=== PATIENT | female | born 1935 | race Caucasian/White ===

== ENCOUNTER 2022-02-04 15:53 | Inpatient (IN) | payer MEDICARE, OTHER ==
[~2022-02-04] VITALS: Ht 157.5 cm; Wt 62.5 kg
[~2022-02-04 15:53] MED LIST: BROMFENAC SODIUM; GABA300 PO; HYDRA25 PO; HYDSUL200 PO; LOSARTAN-HCTZ1 EAC2 PO; POLTRIOPSO BOTHEYES; PRED1SU BOTHEYES; VERA240ER PO; Venlafaxine HCl75 MG PO
[2022-02-04 17:04] LABS: Albumin, Blood 3.3 g/dL (3.4-5.0); Albumin/Globulin Ratio 0.9 (0.8-1.8); Bilirubin, Total 0.5 mg/dL (0.1-1.0); Bun/Creatinine Ratio 29.7 (12.0-20.0); Calcium, Blood 9.4 mg/dL (8.5-10.1); Creatinine, Blood 0.61 mg/dL (0.40-1.00); Globulin, Blood 3.6 g/dL (2.2-4.0); Potassium, Blood 4.2 mmol/L (3.5-5.5); Total Protein, Blood 6.9 g/dL (6.4-8.2)
[2022-02-04 17:54] LABS: BASOPHILS ABSOLUTE AUTO 0.07 K/mm3 (0.00-0.23); BASOPHILS PERCENT AUTO 1 % (0-2); EOSINOPHILS ABSOLUTE AUTO 0.03 K/mm3 (0.00-0.68); EOSINOPHILS PERCENT AUTO 0 % (0-6); Hematocrit 39.2 % (33.0-51.0); Hemoglobin 12.7 g/dL (11.5-16.0); IMMATURE GRAN ABSOLUTE AUTO 0.05 K/mm3 (0.00-0.10); IMMATURE GRAN PERCENT AUTO 0 % (0-1); LYMPHOCYTES ABSOLUTE AUTO 2.31 K/mm3 (0.84-5.20); LYMPHOCYTES PERCENT AUTO 20 % (21-46); MONOCYTES PERCENT AUTO 5 % (4-13); Mean Corpuscular HGB 30.5 pg (26.0-34.0); Mean Corpuscular HGB Conc 32.4 g/dL (31.5-36.5); Mean Corpuscular Volume 94 fL (80-100); NEUTROPHILS ABSOLUTE AUTO 8.67 K/mm3 (1.96-9.15); NEUTROPHILS PERCENT AUTO 74 % (41-73); RDW Coefficient Variation 13.8 % (11.7-14.2); RDW Standard Deviation 47.6 fL (35.1-46.3); Red Blood Cell Count 4.16 M/mm3 (3.80-5.20); White Blood Cell Count 11.73 K/mm3 (4.00-11.30)
[2022-02-04 18:09] LABS: Source, Urine Clean Catch
[2022-02-04 18:24] LABS: Mean Platelet Volume 10.8 fL (9.1-12.4); Platelet Count 267 K/mm3 (150-400)
[2022-02-04 18:32] LABS: Appearance, Urine Cloudy (Clear); Blood, Urine 2+ (Neg); Color, Urine Yellow (P-Yellow); Glucose Qualitative, Urine Neg (Neg); Ketones, Urine 2+ (Neg); Leukocyte Esterase, Urine 3+ (Neg); Nitrite, Urine Pos (Neg); Protein, Urine 2+ (Neg); Urobilinogen, Urine 1+ (Normal)
[2022-02-04 18:55] LABS: Bilirubin, Urine 1+ (Neg)
[2022-02-04 18:56] LABS: White Blood Cells, Urine TNTC /hpf (0-5)
[2022-02-04 18:57] LABS: Bacteria Many /hpf; Mucus Mod (0-Heavy); Red Blood Cells, Urine 0-2 /hpf (0-2); Squamous Epithelial Cells Many /hpf (Few)
[2022-02-04] MEDS ORDERED: FOSAMAX70 MG PO (23:01)
[2022-02-04] MEDS ORDERED: LOSA50 PO (23:02)
[2022-02-04] MEDS ORDERED: RAZADYNE12 MG PO (23:03)
[2022-02-04] MEDS ORDERED: MEMANTINE HCL PO (23:03)
[2022-02-05 06:03] LABS: BASOPHILS ABSOLUTE AUTO 0.07 K/mm3 (0.00-0.23); BASOPHILS PERCENT AUTO 1 % (0-2); EOSINOPHILS ABSOLUTE AUTO 0.18 K/mm3 (0.00-0.68); EOSINOPHILS PERCENT AUTO 2 % (0-6); Hematocrit 36.3 % (33.0-51.0); IMMATURE GRAN ABSOLUTE AUTO 0.14 K/mm3 (0.00-0.10); IMMATURE GRAN PERCENT AUTO 1 % (0-1); LYMPHOCYTES ABSOLUTE AUTO 3.15 K/mm3 (0.84-5.20); LYMPHOCYTES PERCENT AUTO 31 % (21-46); MONOCYTES ABSOLUTE AUTO 0.97 K/mm3 (0.16-1.47); MONOCYTES PERCENT AUTO 10 % (4-13); Mean Corpuscular HGB 30.7 pg (26.0-34.0); Mean Corpuscular HGB Conc 33.1 g/dL (31.5-36.5); Mean Corpuscular Volume 93 fL (80-100); Mean Platelet Volume 10.1 fL (9.1-12.4); NEUTROPHILS ABSOLUTE AUTO 5.75 K/mm3 (1.96-9.15); NEUTROPHILS PERCENT AUTO 56 % (41-73); Platelet Count 165 K/mm3 (150-400); RDW Coefficient Variation 13.7 % (11.7-14.2); RDW Standard Deviation 46.5 fL (35.1-46.3); Red Blood Cell Count 3.91 M/mm3 (3.80-5.20); White Blood Cell Count 10.26 K/mm3 (4.00-11.30)
[2022-02-05 06:41] LABS: Bun/Creatinine Ratio 29.7 (12.0-20.0); Calcium, Blood 8.6 mg/dL (8.5-10.1); Creatinine, Blood 0.61 mg/dL (0.40-1.00); Potassium, Blood 3.6 mmol/L (3.5-5.5)
--- NOTE | 2022-02-05 07:30 | NUR ---
ASSUMED CARE: PT AWAKE AND TALKING TO STAFF BUT DISORIENTED TO LAST NAME AND LOCATION. IMMUNOLOGY TEACHER CHECKING VITALS. BED ALARM ON. NO ACUTE NEEDS AT THIS TIME.
--- NOTE | 2022-02-05 07:41 | NUR ---
PT ALERT TO SELF ONLY. PLEASANTLY CONFUSED. PT INCONT. OF BOTH URINE AND STOOL. PT RESIST TURNING IN BED TO CLEAN HER UP SHE THINKS SHE WILL FALL OFF. PT NEEDS LOTS OF REASSURING THAT WE WILL NOT LET HER FALL AND AFTER A COUPLE MINUTES TURNS A BIT FOR STAFF AND DOES NOT PUSH AGAINST US. PT THIS MORNING BG PER LAB 48. PT GIVEN TWO JUICES WITH SUGAR AND PT JUANITO TO EAT HALF A CHOCOLATE PUDDING. BG RECHECK PER GLUCOMETER 49. DR. ADRIAN MADE AWARE WITH ORDER PER SEP. ENDORSED TO ONCOMING RN.
--- NOTE | 2022-02-05 14:36 | NUR ---
Brief supportive visit this afternoon. Pt resting in bed and is pleasantly confused. Pt denies pain and dyspnea. Pt appears comfortable with no S/S of distress at this time. Palliative Care will F/U when spouse is present to discuss code status wishes and advanced care planning.
--- NOTE | 2022-02-05 18:39 | NUR ---
SHIFT SUMMARY: PT WORKED WITH PT/OT THIS SHIFT. DISCHARGE PLANNING DISCUSSED PLANS WITH PT AND WITH PLANS FOR DC HOME WITH HH AND EQUIPMENT NEEDS ADDRESSED. D5 GTT RUNNING DUE TO HYPOGLYCEMIA. NO ACUTE NEEDS AT THIS TIME.
[2022-02-06 05:25] LABS: Bun/Creatinine Ratio 16.2 (12.0-20.0); Calcium, Blood 8.2 mg/dL (8.5-10.1); Creatinine, Blood 0.56 mg/dL (0.40-1.00); Potassium, Blood 3.2 mmol/L (3.5-5.5)
--- NOTE | 2022-02-06 07:23 | NUR ---
PT ALERT TO SELF PLEASANTLY CONFUSED. BG MONITORED PER ORDER AND THIS MORNING 0600 BG 95. HIGHEST BG WAS 145 AT 1947. PT REMAINED ON D5 1/2 NS AT 75 ML/HR. PT INCONTINET OF BOTH URINE AND STOOL. NO OTHER CHANGES THIS SHIFT.
--- NOTE | 2022-02-06 18:10 | NUR ---
SHIFT SUMMARY PT A&O X2-3 AND IN GOOD MOOD T/O SHIFT. UP TO CHAIR FOR MEALS, FAMILY IN TO VISIT PT DURING VISITING HOURS. INCONT. TOLERATING MIN PO INTAKE, STATES DECREASED APPETITE. CALL LIGHT W/IN REACH. VSS.
[2022-02-07 05:51] LABS: Bun/Creatinine Ratio 16.9 (12.0-20.0); Calcium, Blood 8.8 mg/dL (8.5-10.1); Creatinine, Blood 0.53 mg/dL (0.40-1.00); Potassium, Blood 3.9 mmol/L (3.5-5.5)
--- NOTE | 2022-02-07 05:58 | NUR ---
SHIFT SUMMARY NOC: TOOK OVER CARE AT 0300. PT INCONTINENT OF BOWEL AND BLADDER, IN BRIEF. EXTRA LARGE BM TONIGHT. PUREWICK PLACED. PT HAS HAD NO ACUTE EVENTS.
--- NOTE | 2022-02-07 17:36 | NUR ---
SHIFT SUMMARY PTS LAST CBG WAS 58. PT HAS BEEN ON A DEXTROSE DROP TODAY BEING TITRATED BY CBG. SHE IS EATING VERY LITTLE. PT IS COOPERATIVE WHEN ENCOURAGED TO DRINK APPLEJUICE. HALF AN AMP OF D5- ORDERED FOR PT. NEW CBG 130. ORDERED Q2 CBGS AND A TRANFER TO PCU WHEN NOTIFIED. NOT NOTIFIED OF ROOM YET. BED IN LOWEST POSITION AND CALL LIGHT IN REACH
--- NOTE | 2022-02-07 20:37 | NUR ---
PT TRANSFERED TO PCU 2. REPORT TO ANIMAL EVISCERATOR GIVEN BY PREVIOUS RN. BG 65 NOTIFIED WITH ORDER FOR DEXTROSE 10 AT SAME RATE PREVIOUS INFUSION. UPDATE GIVEN TO PREVIOUS RN REGARDING FLUIDS CHANGE. PT ALERT TO SELF AND PLEASANTLY CONFUSED. PT TRANSFERED BY MECHANICAL DEVELOPMENT ENGINEER.
--- NOTE | 2022-02-07 23:30 | NUR ---
CALLED DR Sheela RIDDLE REGARDING NOTICIBLE CHANGE IN ST DEPRESSION ON TELE. PT DENIES CHEST PAIN VITALS ARE STABLE. ORDER FOR EKG WAS OBTAINED. EKG WAS VIEWED BY DR Sheela RIDDLE WHEN PRINTED. ORDER TO WATCH FOR FUTHER CHANGES.
--- NOTE | 2022-02-08 06:35 | NUR ---
SHIFT SUMMARY PT IS ALERT AND ORIENTED X1. PT DENIES CHEST PAIN/PRESSURE. VITALS HAVE REMAINED STABLE AND IS ON ROOM AIR WITH SATS ABOVE 95%. PT IS ON D10 GTT AT 100 WITH CBG'S Q1 HR. SHE HAS HAD FLUCTUATING BLOOD SUGARS. GLUCAGON WAS GIVEN X1 PER DOCTOR JESSICA ORDER. PT HAS BEEN PLEASANT AND COOPERATIVE MOST OF THE NIGHT UNTIL THIS MORNING WHEN SHE REFUSED BRIEF CHANGE AND SCREAMED "I'M GETTING VERY ANGRY." BED ALARM IS ON DUE TO REPORTS OF IMPULSIVENESS. CALL LIGHT IS WITHIN REACH.
[2022-02-08 09:24] LABS: Beta-hydroxybutyrate 0.6 mg/dL (0.2-2.8); Thyroid Stimulating Hormone 2.69 uIU/mL (0.360-4.800)
--- NOTE | 2022-02-08 09:26 | NUR ---
CARE ASSUMPTION THIS RN ASSUMED CARE FROM JANA MAK AT 0700. PATIENT VSS. TELE SR BBB ST DEPRESSION, NO CHANGE FROM NIGHT ST DEPRESSION IN THE 70S. PATIENT IS ALERT AND ORIENTED TO PERSON, NAME, DATE OF , AND SURROUDNINGS. WHEN THIS RN WENT TO GIVE MORNING MEDS AND ASKED FOR DATE OF PATIENT STATED SEPTEMBER, THE CORRECT DATE AND YEAR, BUT HER BIRTHDAY IS IN FEBRUARY, THIS RN ASKED SEPTEMBER IS THE MONTH, AND PATIENT CORRECTED SELF TO FEBRUARY. PERRLA. PATIENT HAS GENERALIZED WEAKNESS. REPOSITIONING TWO HOURS PATIENT ALLOWS. PATIENT REPROTS NO PAIN. PATIENT REPORTS NO SHORTNESS OF BREATH. ON RA WITH SPO2 >90%. PATIENT LUNG SOUNDS CLEAR UPPER DIM LOWER. PATIENT REPROTS NO CHEST PAIN/PRESSURE. STRONG RADIAL AND PEDIS PULSE. TRACE EDEMA LOWER EXTREMITIES. PATIENT SKIN IS FARGILE, PALE, AND THIN. CLEAN AND DRY. PATIENT ABD IS NONTENDER AND ACTIVE. SEE SHIFT ASSESSMENT FOR FURTHER DETAILS. PATIENT HAS D10 INFUSING AT 50MLS/HR. CBG Q1. PATIENT ATE ABOUT 50% OF HER BREAKFAST THIS MORNING WITH THIS RN STAYING IN THE ROOM AND PROVIDING ENCOURAGEMENT. PATIENT TAKES MEDICATIONS ONE AT A TIME WITH WATER, WILL POCKET MEDICATIONS SO THIS RN CHECKED BEFORE GIVING NEXT MEDICATION TO ENSURE SHE TOOK IT. MD ADRIAN INTO SEE PATIENT THIS AM AND UPDATED PATIENT ON PLAN OF CARE. THIS RN PROVIDED EDUCATION ON PLAN OF CARE. THIS RN DISCUSSED GOALS THAT THEY PATIENT HAD FOR THE DAY. PATIENT DID RANGE OF MOTION IN BED THIS AM. MORNING CARE DONE AND THIS RN ASSISTED NEEDED. PLAN OF CARE UP TO DATE. CALL LIGHT WITHIN REACH AND BED IN LOWEST POSITION. WILL CONTINUE TO MONITOR AND PROVIDE CARE.
--- NOTE | 2022-02-08 16:57 | NUR ---
SHIFT SUMMARY PATIENT NEURO REMAINS THE SAME. PATIENT IS Q4 BLOOD SUGARS AND ONCE BLOOD SUGAR IS GREAT THAN 120 TO SHUT OFF D5 DRIP PER MD ORDER. PATIENT CBG HAS RANGED FROM 77-115, SEE LAB SECTION. PATIENT EATS WELL WITH ENCOURAGMENT AND ASSISTANCE NEEDED. PATIENT IS INCONTINENT OF BOWEL AND BLADDER. CHANGED AND REPOSITIONED THROUGHOUT THE DAY. PATIENT HAS SLEPT OFF AND ON MOST OF THE DAY. VSS. NO ACUTE CHANGES THIS SHIFT. CALL LIGHT WITHIN REACH, BED IN LOWEST POSITION AND BED ALARM ON. WILL CONTINUE TO MONITOR AND PROVIDE CARE UNTIL HAND OFF WITH NEXT SHIFT.
--- NOTE | 2022-02-08 20:26 | NUR ---
CALLED DR DIXON TO VERIFY ORDERS OF CBG CHECK WHILE PT STILL ON D10 GTT. ORDERS GIVEN TO CHECK BLOOD SUGAR Q2 HOURS WHILE PT IS ON GTT. NO FURTHER ORDERS.
--- NOTE | 2022-02-08 21:18 | NUR ---
ASSUMED CARE PT ALERT AND ORIENTED TO SELF. PT DENIES CHEST PAIN OR SOB. VITALS ARE STABLE AND IS ON ROOM AIR WITH SATS ABOVE 92%. PT TOOK PO MEDS WITH APPLESAUCE BUT WAS REMINDED SEVERAL TIMES TO SWALLOW AND NOT SPIT THEM OUT. D10 GTT AT 50 AND LAST CBG WAS 102. ORDER OBTAINED FOR BLOOD SUGAR CHECKS Q2 HOURS D/T GTT. BED ALARM ACTIVE AND CALL LIGHT IS WITHIN REACH.
[2022-02-09 04:54] LABS: Bun/Creatinine Ratio 13.3 (12.0-20.0); Calcium, Blood 8.7 mg/dL (8.5-10.1); Creatinine, Blood 0.53 mg/dL (0.40-1.00); Potassium, Blood 3.8 mmol/L (3.5-5.5)
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
--- NOTE | 2022-02-09 17:14 | NUR ---
SHIFT SUMMARY PT REMAINS ALERT ONLY TO SELF. PT SLEEPING MOST OF SHIFT IF NOT AROUSED BY STAFF. BP STABLE. HR NSR. PT DENIES ANY PAIN. PT DID HAVE MULTIPLE BOWEL MOVEMENTS THIS SHIFT AND GI PANEL SENT. BLOOD SUGARS HAVE BEEN STABLE SINCE D10 DRIP WAS DISCONTINUED. PER DR. KAYLAH MCCLURE TO DO Q4H CBG. PT REPOSITIONED Q2H. PT HEAVY TWO PERSON ASSIST FROM BED TO CHAIR. PT HAS POOR APPETITE AND NEEDS FREQUENT ENCOURAGEMENT TO EAT. WILL CONTINUE TO MONITOR CLOSELY
[2022-02-09 20:28] LABS: Campylobacter Sp Not Detected (NOT DETECT)
[2022-02-09 20:29] LABS: Adenovirus F 40/41 Not Detected (NOT DETECT); Astrovirus Not Detected (NOT DETECT); Cryptosporidium Not Detected (NOT DETECT); Cyclospora Cayetanensis Not Detected (NOT DETECT); E. Coli O157 Not Detected (NOT DETECT); Entamoeba Histolytica Not Detected (NOT DETECT); Enteroaggregative E. coli-EAEC Not Detected (NOT DETECT); Enteropathogenic E. coli-EPEC Not Detected (NOT DETECT); Enterotoxigenic E. coli-ETEC Not Detected (NOT DETECT); Giardia Lamblia Not Detected (NOT DETECT); Norovirus GI/GII Not Detected (NOT DETECT); Plesiomonas Shigelloides Not Detected (NOT DETECT); Rotavirus A Not Detected (NOT DETECT); Salmonella Sp Not Detected (NOT DETECT); Sapovirus Not Detected (NOT DETECT); Shiga Toxin-prod E. coli-STEC Not Detected (NOT DETECT); Shigella/Enteroin E. coli-EIEC Not Detected (NOT DETECT); Vibrio Cholerae Not Detected (NOT DETECT); Vibrio Sp Not Detected (NOT DETECT); Yersinia Enterocolitica Not Detected (NOT DETECT)
--- NOTE | 2022-02-10 03:25 | NUR ---
CALLED DR KHAN REGARDING C. DIFF PCR RESULTING POSITIVE. FURTHER ORDERS TO HAVE DAY SHIFT TEAM FOLLOW UP WITH TOX RESULTS THAT ARE PENDING AT THIS TIME.
--- NOTE | 2022-02-10 05:53 | NUR ---
SHIFT SUMMARY PT IS ALERT AND ORIENTED X1. THERE HAVE BEEN NO ACUTE CHAMGES T/O SHIFT. VITALS ARE STABLE AND SHE IS ON ROOM AIR WITH SATS ABOVE 92%. PT HAS REMAINED BEDREST T/O THE NIGHT. SHE DENIES CHEST PAIN/PRESSURE OR SOB. PT IS INCONT OF BOWEL AND URINE AND HAS ATTENDS IN PLACE. C-DIFF PCR LABS RESULTED IN DETECTED AND DR. KHAN WAS NOTIFIED. BED ALARM IS ACTIVE AND CALL LIGHT IS WITHIN REACH.
--- NOTE | 2022-02-10 12:34 | NUR ---
CARE NOTE THIS NURSE SPOKE WITH DR. ADRIAN AT 1233 IN REGARD TO NOT ADMINISTERING VANCOCIN CAPSULE, SEE EMAR FOR REASONS HELD, STATED THAT BECAUSE PT IS NOT HAVING DIARRHEA TO HOLD VANCOCIN ANYWAY BUT UPDATE IF EPISODES OF DIARRHEA START AGAIN.
[2022-02-10] MEDS ORDERED: MIRT15 PO (13:01)
[2022-02-10] MEDS ORDERED: CEFU500T30 PO (13:01)
[2022-02-10] MEDS ORDERED: MULVITA PO (13:04)
[2022-02-10] MEDS ORDERED: Vitamin D1000 UNI1 PO (13:04)
--- NOTE | 2022-02-10 15:30 | NUR ---
Pt resting in bed and is pleasantly confused. Pt's spouse Contreras at bedside. Engaged in therapeutic discussion regarding advanced care planning. Educated on disease process including trajectory. Discussed having a plan in place for the future including considering hospice. Offered therapeutic listening and answered questions. Contreras reports thinking if he can get a hospital bed in the home he may be able to provide much of the care for the Pt. Discussed Pt's current code status. Educated on life sustaining treatments including risk factors of CPR with V/U made by spouse. Spouse Contreras reports Pt want to be DNR. Continued therapeutic listening and answered questions. Spoke with Primary RN and discussed case. Pt requiring 2 person transfer, is incontinent of bowel and bladder. Pt's PO intake is poor and requires assistance with bathing and dressing. Spoke with Dr Marr and discussed case. Changed Pt's code status to DNR per V/O from Dr Marr. Palliative Care will remain available.
--- NOTE | 2022-02-10 17:04 | NUR ---
SHIFT SUMMARY PT HAS REMAINED ALERT TO SELF, SHE HAS BEEN LETHARGIC T/O SHIFT BUT WAKES TO VERBAL STIMULI AND IS COOPERATIVE WITH CARE. VITAL SIGNS STABLE, SHE HAS BEEN ON ROOM AIR AND SPO2 HAS BEEN >95%, BP AND HR STABLE. SHE HAS DENIED PAIN DURING SHIFT. SHE IS INCONTINENT OF BOTH URINE AND STOOL AND IS NOT ABLE TO NOTIFY STAFF WHEN WET. POWERGLIDE IN KADE IS SALINE LOCKED. THIS NURSE HAS GOTTEN PT UP AT BEDSIDE FOR LUNCH AND STOOD PT UP AT EDGE OF BED, SHE WAS A 2 PERSON ASSIST AND WAS WEAK AND THEREFOR COULD NOT TOLARATE AMBULATING. DR. ADRIAN MADE AWARE AND DISCHARGE PLAN CHANGED TO CONSULTING PALLIATIVE CARE AND CARE MANAGEMENT WITH NEW GOAL OF DISCHARGING HOME ON HOSPICE PER DR. ADRIAN. GENOVEVA THE PATIENTS WAS AT BEDSIDE FOR MAJORITY OF AFTERNOON. PT ALSO WORKED WITH OCCUPATIONAL THERAPY DURING SHIFT BUT WAS TOO WEAK AND LETHARGIC TO WORK WITH PHYSICAL THERAPY. THIS NURSE HAS ENCOURAGED PO INTAKE OF ENSURE WHEN IN ROOM AND PT IS ABLE TO TAKE SMALL SIPS. SHE HAS NOT HAD ANY SIGNS OF NAUSEA. NO OTHER ACUTE CHANGES NOTED. SHE APPEARS TO BE SLEEPING NOW. BED IN LOW AND BED ALARM ON. CALL LIGHT IN REACH.
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
--- NOTE | 2022-02-11 13:09 | NUR ---
Pt resting in bed with her eyes closed. Pt appears comfortable with no S/S of distress at this time. Pt's spouse Contreras at bedside. Provided update with Pt still refusing to eat and drink. Engaged in therapeutic discussion regarding goals of care. Discussed considering comfort care and hospice. Educated on comfort care and hospice philosophy with V/U made by Contreras. Contreras reports being in agreement and states Pt's wishes are to focus on comfort at this stage in life. Discussed hospice agencies to choose with Contreras reporting [facility] as preference. Offered therapeutic listening and answered questions. Contreras reports no other concerns at this time. Spoke with Primary RN Rita and discussed case. Spoke with RN Lesly and discussed case. Spoke with Dr Marr and discussed case. Placed comfort care order, comfort care order set, and D/C maintenance medications per V/O from Dr Marr. Pt has lost 18 pounds since being admitted to the hospital. Pt appears appropriate for hospice and spouse is agreeable to hospice services. PPS 40% ADLs 6/6 FAST 7C Albumin 2.5 Palliative Care will remain available
--- NOTE | 2022-02-12 05:29 | NUR ---
SHIFT SUMMARY NOC: PT SLEPT MOST OF NIGHT. INCONTINENT OF BOWEL AND BLADDER, BRIEF IN PLACE. PT DISORIENTATED*4. NO COMPLAINTS OF PAIN. NO COMFORT CARE MEDS GIVEN. PT ATE SMALL AMOUNT OF CRACKERS/CHEESE AND ORANGE JUICE. NO ACUTE EVENTS.
--- NOTE | 2022-02-12 10:00 | NUR ---
Comfort Care Visit Pt resting in bed with her eyes closed. Pt appears comfortable with no S/S of distress at this time. Attempted to call Pt's spouse with no answer. Palliative Care will remain available.
--- NOTE | 2022-02-13 04:42 | NUR ---
SHIFT SUMMARY: PT IS A/OXSELF. COMFORT CARE. ON ISOLATION FOR C-DIFF. SHE DID USE A PUREWICK THROUGHOUT THE NOC SHIFT. SHE HASA POWERGLIDE IN THE LUE. PER PRIOR RN, THE PT. CAN BE RESISTANT TO CARE. SHE SWATS/SWINGS AT STAFF, BUT THIS RN DID NOT ENCOUNTER THAT BEHAVIOR. WE WILL CONTINUE TO MONITOR.
--- NOTE | 2022-02-13 11:24 | NUR ---
DISCHARGE SUMMARY PATIENT DISCHARGED HOME ON HOSPICE. IV AND PUREWICK D/C'D. PATIENT TAKEN VIA [facility] TRANSPORT. PATIENT FAMILY CALLED AND NOTIFIED OF PATIENT ON THEIR WAY.
== END 2022-02-13 11:14 | disposition hospice, home (50) | DRG 689 ==
LOC: ER 15:53 → MEDS 21:12 → SURS 21:12 → MEDS 22:40 → PCU 02-07 20:31 → MEDS 02-11 17:35
PROVIDERS: Internal Medicine; Student in an Organized Health Care Education/Training Program; ADMIT Family Medicine
DX: N39.0 Urinary tract infection, site not specified (principal); E43 Unspecified severe protein-calorie malnutrition; G93.41 Metabolic encephalopathy; E16.2 Hypoglycemia, unspecified; F03.90 Unspecified dementia, unspecified severity, without behavioral disturbance, psychotic disturbance, mood disturbance, and anxiety; Z51.5 Encounter for palliative care; E88.09 Other disorders of plasma-protein metabolism, not elsewhere classified; I10 Essential (primary) hypertension; R53.81 Other malaise; F32.A Depression, unspecified; M32.9 Systemic lupus erythematosus, unspecified; E87.6 Hypokalemia; B96.20 Unspecified Escherichia coli [E. coli] as the cause of diseases classified elsewhere; Z68.28 Body mass index [BMI] 28.0-28.9, adult; Z74.01 Bed confinement status; Z79.899 Other long term (current) drug therapy; Z98.890 Other specified postprocedural states; Z98.1 Arthrodesis status; Z79.52 Long term (current) use of systemic steroids
CPT/HCPCS: 36415; 51701; 70450; 80048; 80053; 81001; 82010; 82040; 82947; 83605; 84206; 84443; 84681; 85025; 87040; 87077; 87086; 87186; 87324; 87507; 93005; 93010; 96361; 96372; 96374-59; 97110; 97162; 97165; 97530; 97535; 99285-25; A9270; C1751; G0378; J0696; J1610; J1650; J7030; J7042; J7060; J7070